=== PATIENT | male | born 1960 | race Caucasian/White ===

== ENCOUNTER 2021-03-12 01:08 | Day surgery (SDC) | payer OTHER | END 2021-03-12 01:10 | disposition home or self-care (01) | LOC: WOUND 01:08 | DX: N30.41 Irradiation cystitis with hematuria (principal); C61 Malignant neoplasm of prostate | CPT/HCPCS: G0463 ==

== ENCOUNTER 2021-05-10 01:21 | Day surgery (SDC) | payer OTHER | END 2021-05-10 23:36 | disposition home or self-care (01) | LOC: WOUND 01:21 | DX: N30.41 Irradiation cystitis with hematuria (principal); C61 Malignant neoplasm of prostate | CPT/HCPCS: G0463 ==

== ENCOUNTER 2021-05-13 00:46 | Day surgery (SDC) | payer OTHER | END 2021-05-13 23:54 | disposition home or self-care (01) | LOC: HBO 00:46 | DX: L59.8 Other specified disorders of the skin and subcutaneous tissue related to radiation (principal); N30.41 Irradiation cystitis with hematuria; C61 Malignant neoplasm of prostate; Y84.2 Radiological procedure and radiotherapy as the cause of abnormal reaction of the patient, or of later complication, without mention of misadventure at the time of the procedure | CPT/HCPCS: G0277 ==

== ENCOUNTER 2021-05-14 08:36 | Day surgery (SDC) | payer OTHER | END 2021-05-14 22:54 | disposition home or self-care (01) | LOC: HBO 08:36 | DX: L59.8 Other specified disorders of the skin and subcutaneous tissue related to radiation (principal); N30.41 Irradiation cystitis with hematuria; C61 Malignant neoplasm of prostate; R31.9 Hematuria, unspecified; Y84.2 Radiological procedure and radiotherapy as the cause of abnormal reaction of the patient, or of later complication, without mention of misadventure at the time of the procedure | CPT/HCPCS: G0277 ==

== ENCOUNTER 2021-05-15 08:00 | Day surgery (SDC) | payer OTHER | END 2021-05-15 23:59 | disposition home or self-care (01) | LOC: HBO 08:00 | DX: L59.8 Other specified disorders of the skin and subcutaneous tissue related to radiation (principal); N30.41 Irradiation cystitis with hematuria; C61 Malignant neoplasm of prostate; Y84.2 Radiological procedure and radiotherapy as the cause of abnormal reaction of the patient, or of later complication, without mention of misadventure at the time of the procedure | CPT/HCPCS: G0277 ==